=== PATIENT | male | born 1990 | race Native Hawaiian/Other Pacific Islander ===

== ENCOUNTER 2020-09-14 07:31 | Outpatient (CLI) | payer OTHER | END 2020-09-14 20:16 | disposition home or self-care (01) | LOC: RAD 07:31 | DX: M79.675 Pain in left toe(s) (principal) ==

== ENCOUNTER 2021-06-05 08:32 | Outpatient (CLI) | payer OTHER | END 2021-06-05 20:33 | disposition home or self-care (01) | LOC: RAD 08:32 | PROVIDERS: ATTEND Nurse Practitioner Family | DX: R06.02 Shortness of breath (principal); R05 Cough ==

== ENCOUNTER 2022-04-11 14:47 | Outpatient (CLI) | payer OTHER | END 2022-04-11 19:00 | disposition home or self-care (01) | LOC: RAD 14:47 | PROVIDERS: ATTEND Physician Assistant | DX: T14.8XXA Other injury of unspecified body region, initial encounter (principal); W19.XXXA Unspecified fall, initial encounter ==

== ENCOUNTER 2022-04-15 13:05 | Outpatient (CLI) | payer OTHER | END 2022-04-15 19:04 | disposition home or self-care (01) | LOC: US 13:05 | PROVIDERS: ATTEND Physician Assistant | DX: T14.8XXA Other injury of unspecified body region, initial encounter (principal); W19.XXXA Unspecified fall, initial encounter ==